=== PATIENT | male | born 2000 | race Two or more races ===

== ENCOUNTER 2023-11-14 20:18 | Emergency (ER) | payer OTHER ==
[~2023-11-14] VITALS: Ht 167.6 cm; Wt 70.0 kg
[2023-11-14 20:30] VITALS: BP 103/62; PULSE 80; RESP 18; TEMP 98.2; O2SAT 96
== END 2023-11-14 20:39 ==
LOC: ER 20:18
DX: F10.129 Alcohol abuse with intoxication, unspecified (principal); Y90.9 Presence of alcohol in blood, level not specified